=== PATIENT | male | born 1950 | race Caucasian/White ===

== ENCOUNTER 2017-01-05 13:05 | Emergency (ER) | payer OTHER, MEDICARE ==
[~2017-01-05] VITALS: Ht 177.8 cm; Wt 80.9 kg
[2017-01-05 13:08] VITALS: BP 138/88; PULSE 84; TEMP 97.5
== END 2017-01-05 15:23 | disposition home or self-care (01) ==
LOC: COL.ER 13:05
DX: S61.212A Laceration without foreign body of right middle finger without damage to nail, initial encounter (principal); Z23 Encounter for immunization; W29.8XXA Contact with other powered hand tools and household machinery, initial encounter; Y93.G1 Activity, food preparation and clean up

== ENCOUNTER 2018-10-25 14:14 | Emergency (ER) | payer OTHER ==
[~2018-10-25] VITALS: Ht 177.8 cm; Wt 88.6 kg
[2018-10-25 14:21] VITALS: BP 150/86; TEMP 97.6
[2018-10-25 17:07] VITALS: PULSE 78
== END 2018-10-25 17:09 | disposition home or self-care (01) ==
LOC: COL.ER 14:14
DX: S61.212A Laceration without foreign body of right middle finger without damage to nail, initial encounter (principal); S61.210A Laceration without foreign body of right index finger without damage to nail, initial encounter; F17.210 Nicotine dependence, cigarettes, uncomplicated; W26.8XXA Contact with other sharp object(s), not elsewhere classified, initial encounter; Y92.59 Other trade areas as the place of occurrence of the external cause